=== PATIENT | male | born 1990 | race African-American/Black ===

== ENCOUNTER 2018-01-08 18:33 | Emergency (ER) | payer SELFPAY ==
[2018-01-08] MEDS ORDERED: Acetaminophen/HYDROcodone 325-5 MG Tab PO ONE (18:58)
--- NOTE | 2018-01-08 20:02 | EDM.PDOC ---
ED HPI GENERAL MEDICAL PROBLEM - General Chief Complaint: Lower Extremity Injury/Pain Stated Complaint: DROPPED A 500 LB STACK ON FEET Time Seen by Provider: 01/08/18 18:53 Source of Information: Reports: Patient History Limitations: Reports: No Limitations - History of Present Illness INITIAL COMMENTS - FREE TEXT/NARRATIVE: Patient is a 27 year old male who presents to the E.D. complaining of pain to the left foot. Patient states a stack of cannisters fell and landed on his left foot. He has been weight bearing with a limp noted. Increased pain with palpation noted. He has not taken anything for the pain. Patient denies n/t, nor any pain to the toes and or ankle. Left Feet Pain Score (Numeric/FACES): 10 - Related Data Allergies Allergy/AdvReac Type Severity Reaction Status Date / Time No Known Allergies Allergy Verified 01/08/18 18:39 Home Meds: Home Meds Multivits-Minerals/FA/Lycopene [One-A-Day Men's Tablet] 1 tab PO DAILY 01/08/18 [History] Social & Family History - Family History Endocrine/Metabolic: Reports: Diabetes, type II - Tobacco Use Smoking Status *Q: Current Every Day Smoker Years of Tobacco use: 5 Packs/Tins Daily: 1 - Caffeine Use Caffeine Use: Reports: Coffee, Energy Drinks - Recreational Drug Use Recreational Drug Use: Yes Drug Use in Last 12 Months: No Recreational Drug Type: Reports: Marijuana/Hashish Recreational Drug Use Frequency: Not Used In Over 6 Months Review of Systems - Review of Systems Review Of Systems: ROS reveals no pertinent complaints other than HPI. ED EXAM, GENERAL - Physical Exam Exam: See Below Exam Limited By: No Limitations General Appearance: Alert, WD/WN, Mild Distress Ears: Hearing Grossly Normal Nose: Normal Inspection Throat/Mouth: Normal Voice, No Airway Compromise Neck: Normal Inspection, Supple Respiratory/Chest: No Respiratory Distress, No Accessory Muscle Use Cardiovascular: Normal Peripheral Pulses, Regular Rate, Rhythm, No Murmur Peripheral Pulses: 2+: Posterior Tibial (L), Dorsalis Pedis (L) Extremities: Normal Inspection, No Pedal Edema, Normal Capillary Refill, Limited Range of Motion (2nd to pain to the dorsum of the foot along the 2nd to 5th metatarsals. Able to flex/ext the ankle and all toes. Decrease rom of the toes noted. ), Other (NO swelling of the foot on examination. ) Neurological: Alert, Oriented, CN II-XII Intact, Normal Cognition, No Motor/ Sensory Deficits, Abnormal Gait (limp with walking) Psychiatric: Normal Affect, Normal Mood Skin Exam: Warm, Dry, Intact, Normal Color, No Rash Course - Vital Signs Last Recorded V/S: Last Vital Signs Temp 98.8 F 01/08/18 18:43 Pulse 89 01/08/18 18:43 Resp 18 01/08/18 18:43 BP 140/90 01/08/18 18:43 Pulse Ox 100 01/08/18 18:43 - Orders/Labs/Meds Orders: Active Orders 24 hr Category Date Time Status Foot Comp Min 3V Lt [CR] Stat Exams 01/08/18 18:58 Taken DME for Discharge [COMM] Stat Oth 01/08/18 19:56 Ordered Meds: Medications Discontinued Medications Generic Name Dose Route Start Last Admin Trade Name Freq PRN Reason Stop Dose Admin Hydrocodone Bitart/Acetaminophen 1 tab 01/08/18 18:58 01/08/18 19:12 Mcloud 325-5 Mg PO 01/08/18 18:59 1 tab ONETIME ONE Administration Ketorolac Tromethamine 60 mg 01/08/18 20:24 01/08/18 20:31 Toradol IM 01/08/18 20:25 60 mg ONETIME ONE Administration - Re-Assessments/Exams Free Text/Narrative Re-Assessment/Exam: X-ray of the left foot ordered. Ordered norco 5-325mg PO x1. Ice applied to the foot per nursing staff. X-ray of the foot revealed no fracture. Reviewed with Dr. Ley. Final interpretation is pending. Ordered crutches and walking boot. Patient will be discharged home with instructions as documented. The patient remained hemodynamically stable while under my care in the E.D. I discussed the concerning symptoms for which to returnto the E.D. with the patient. The patient verbalized understanding. All questions were answered. 01/08/18 20:25 Patient continues have pain to the left foot. No relief with the Mcloud. Ordered Toradol 60 mg IM. 2036 Patient is feeling better. He is ready to be discharged home. Departure - Departure Time of Disposition: 19:58 Disposition: Home, Self-Care 01 Condition: Good Clinical Impression: Crushing injury of foot, left Qualifiers: Encounter type: initial encounter Qualified Code(s): S97.82XA - Crushing injury of left foot, initial encounter - Discharge Information Instructions: Crutch Use, Adult, [id number], Crush Injury of the Foot, Easy- to-Read Referrals: PCP,None [Primary Care Provider] - Forms: ED Department Discharge, ED Return to Work/School Form Additional Instructions: No obvious fracture noted to the left foot. WIll have you wear the walking boot and utilize crutches to ambulate. Elevate when able to reduce swelling and pain. Apply ice to the affected area three times a day, 30 minutes in duration , do not apply ice directly on the skin. You are to be non weightbearing, toe touch only for balance. See Orthopedic surgeon in 7 to 10 days for reevaluation. Return to the E.D. if you develop any new or worsening symptoms. Please read the educational material on compartment syndrome. Please return if you experience any of these symptoms. Take tylenol and ibuprofen in alternating fashion for pain. NO driving today since receiving a sedative medication. - My Orders Last 24 Hours: My Active Orders 01/08/18 18:58 Foot Comp Min 3V Lt [CR] Stat 01/08/18 19:56 DME for Discharge [COMM] Stat - Assessment/Plan Last 24 Hours: My Active Orders 01/08/18 18:58 Foot Comp Min 3V Lt [CR] Stat 01/08/18 19:56 DME for Discharge [COMM] Stat
[2018-01-08] MEDS ORDERED: Ketorolac 60 MG/2 ML SDV IM ONE (20:24)
--- NOTE | 2018-01-09 08:40 | CR ---
Left foot: Four views of the left foot were obtained. Comparison: No prior foot exam. Joint spaces are maintained. No fracture, dislocation or other bony abnormality is seen. Impression: 1. No abnormality is identified on left foot exam. Diagnostic code #1
== END 2018-01-08 20:38 | disposition home or self-care (01) ==
LOC: JD.ED 18:33
DX: S97.82XA Crushing injury of left foot, initial encounter (principal); E11.9 Type 2 diabetes mellitus without complications; F17.210 Nicotine dependence, cigarettes, uncomplicated; W20.8XXA Other cause of strike by thrown, projected or falling object, initial encounter
CPT/HCPCS: 73630; 96372; 99284; A9270; J1885